=== PATIENT | female | born 1970 | race Caucasian/White ===

== ENCOUNTER 2023-03-31 18:47 | Inpatient (IN) | payer OTHER ==
[~2023-03-31] VITALS: Ht 165.1 cm; Wt 56.7 kg
[2023-03-31 20:10] LABS: BASOPHILS % (AUTO) 0.1 % (0.0-5.0); HEMATOCRIT 45.6 % (36-48); MEAN CORPUSCULAR HEMOGLOBIN 28.6 pg (27.0-33.0); MEAN CORPUSCULAR HGB CONC 32.9 g/dL (32.0-36.0); NEUTROPHILS % (AUTO) 80.5 % (40.0-77.0); PLATELET COUNT (AUTO) 287 K/uL (130-400); RED BLOOD CELL COUNT(AUTO) 5.24 MIL/uL (4.00-5.50); RED CELL DISTRIBUTION WIDTH 13.7 % (11.0-15.5); WHITE BLOOD COUNT (AUTO) 13.5 K/uL (4.8-10.8)
[2023-03-31 20:19] LABS: CREATININE 0.9 mg/dL (0.5-1.5); POTASSIUM 4.8 mmol/L (3.5-5.1)
[2023-03-31 20:28] LABS: ALBUMIN 4.4 g/dL (3.5-5.0); TOTAL PROTEIN, SERUM 8.1 g/dL (6.0-8.3)
[2023-04-01 00:01] LABS: APPEARANCE,URINE CLOUDY (CLEAR); BILIRUBIN,URINE 1 mg/dL (NEGATIVE); COLOR,URINE YELLOW (YELLOW); GLUCOSE, URINE (UA) NEGATIVE (NEGATIVE); KETONES,URINE 100 mg/dL (NEGATIVE); LEUKOCYTE ESTERASE ,URINE NEGATIVE Leu/uL (NEGATIVE); NITRATE,URINE NEGATIVE (NEGATIVE); OCCULT BLOOD,URINE NEGATIVE (NEGATIVE); PH,URINE 5.5 (5.0-8.0); PROTEIN,URINE 50 mg/dL (NEGATIVE)
[2023-04-01 00:05] LABS: MUCUS,URINE MANY LPF (None Seen); SQUAMOUS EPITHELIAL CELL,UR MOD /HPF (0-2); WBC,URINE 0-1 /HPF (0-1)
[2023-04-01] MEDS ORDERED: MORPHINE 2 MG SYG IVP ONE ×2 (01:00→05:00)
[2023-04-01] MEDS ORDERED: 0.9%NACL 1000ML 1,000 ML IV ONE (01:00)
[2023-04-01] MEDS ORDERED: ONDANSETRON 4MG INJ IVP ONE ×2 (01:00→05:00)
[2023-04-01] MEDS ORDERED: IOHEXOL-350 75 ML VIAL IV ONE (01:37)
[2023-04-01] MEDS ORDERED: MORPHINE 2 MG SYG IV PRN (05:30)
[2023-04-01] MEDS ORDERED: ONDANSETRON 4MG INJ IV PRN (05:30)
[2023-04-01] MEDS ORDERED: MORPHINE 4 MG SYG IV PRN (05:30)
[2023-04-01] MEDS: LACTATED RINGERS 1000ML 1,000 ML IV SCH ×4 (06:06→18:06)
[2023-04-01] MEDS: ENOXAPARIN SODIUM 40 MG/0.4 ML SYRINGE SQ SCH (08:47)
[2023-04-01] MEDS: FAMOTIDINE 20MG VIAL IV SCH ×2 (08:47→21:30)
[2023-04-01 20:26] VITALS: BP 117/74
[2023-04-02] VITALS: BP 105/40
[2023-04-02 04:00] VITALS: BP 98/55
[2023-04-02] MEDS: LACTATED RINGERS 1000ML 1,000 ML IV SCH ×3 (04:30→09:53)
[2023-04-02 05:47] LABS: BASOPHILS % (AUTO) 0.4 % (0.0-5.0); EOSINOPHILS % (AUTO) 4.3 % (0.0-8.0); HEMATOCRIT 34.6 % (36-48); LYMPHOCYTES % (AUTO) 43.5 % (21.0-51.0); MEAN CORPUSCULAR HEMOGLOBIN 28.7 pg (27.0-33.0); MEAN CORPUSCULAR HGB CONC 32.4 g/dL (32.0-36.0); MEAN CORPUSCULAR VOLUME 88.7 fL (79-99); MONOCYTES % (AUTO) 11.4 % (3.0-13.0); NEUTROPHILS % (AUTO) 40.2 % (40.0-77.0); PLATELET COUNT (AUTO) 208 K/uL (130-400); RED CELL DISTRIBUTION WIDTH 13.4 % (11.0-15.5); WHITE BLOOD COUNT (AUTO) 4.9 K/uL (4.8-10.8)
[2023-04-02 06:03] LABS: CREATININE 0.8 mg/dL (0.5-1.5); MAGNESIUM 1.7 mg/dL (1.80-2.40); PHOSPHORUS 3.2 mg/dL (2.5-4.9); POTASSIUM 3.7 mmol/L (3.5-5.1)
[2023-04-02 08:00] VITALS: BP 96/59
[2023-04-02] MEDS: FAMOTIDINE 20MG VIAL IV SCH (09:52)
[2023-04-02] MEDS: ENOXAPARIN SODIUM 40 MG/0.4 ML SYRINGE SQ SCH (09:52)
[2023-04-02] MEDS ORDERED: LACTULOSE 20 GM/30 ML UDCUP PO SCH (10:30)
[2023-04-02 12:00] VITALS: BP 111/63
== END 2023-04-02 14:05 | disposition home or self-care (01) | DRG 390 ==
LOC: EDH 18:47 → EDHIP 18:48 → 3DH 04-01 14:05
PROVIDERS: ADMIT Internal Medicine; ATTEND Internal Medicine
PROC: 0D9770Z Drainage of Stomach, Pylorus with Drainage Device, Via Natural or Artificial Opening (ICD-10-PCS; principal; 2023-04-01)
DX: K56.600 Partial intestinal obstruction, unspecified as to cause (principal)
CPT/HCPCS: 36415; 71045; 74018; 74177; 80048; 80053; 81001; 83690; 83735; 84100; 84484; 85025; 93005; G0378; J1650; J2270; J2405; J3490; J7030; J7120; Q9967